=== PATIENT | female | born 1960 | race Caucasian/White ===

== ENCOUNTER 2022-10-22 23:19 | Emergency (ER) | payer BC, OTHER ==
[~2022-10-22] VITALS: Ht 162.6 cm; Wt 93.4 kg
[2022-10-22 23:33] VITALS: BP_SYST 177
--- NOTE | 2022-10-22 23:40 | NUR ---
PT PLACED IN BED 5, REPORT GIVEN TO PC NURSE, PT PLACED ON CARDIAC MONITORING.
--- NOTE | 2022-10-22 23:45 | NUR ---
PT BIB SELF FROM HOME, AMBULATED TO BED 5. PT C/O HTN BEGINNING THIS EVENING. PT STATES SHE TOOK HER BP MEDICATION EARLIER THAN USUAL, BUT STATES MEDICATION WAS INEFFECTIVE. PT C/O OF A LIGHT HEADACHE AND PAIN DULL ON LEFT NECK. PT RATES PAIN 5/10. PT STATES SHE IS UNDER ALOT OF STRESS AT WORK. PT DENIES FEVER/CHILLS, N/V/D. PT DENIES TAKING MEDICATION FOR THE PAIN. SAFETY MEASURES IN PLACE.
--- NOTE | 2022-10-22 23:45 | NUR ---
ER at bedside examining patient.
[2022-10-23] MEDS ORDERED: NIFEdipine 30 MG TAB.ER.24 PO ONE
[2022-10-23] MEDS ORDERED: KETOROLAC TROMETHAMINE 60 MG/2 ML VIAL IM ONE
[2022-10-23 00:01] LABS: BILIRUBIN,URINE NEGATIVE (NEGATIVE); BLOOD, URINE 1+ (NEGATIVE); CLARITY/URINE CLEAR (CLEAR); COLOR,URINE YELLOW (YELLOW); GLUCOSE,URINE NEGATIVE (NEGATIVE); KETONES,URINE NEGATIVE (NEGATIVE); LEUKOCYTE ESTERASE ,URINE NEGATIVE (NEGATIVE); NITRITE, URINE NEGATIVE (NEGATIVE); PROTEIN URINE NEGATIVE (NEGATIVE); UROBILINOGEN,URINE 0.2 (0.2-1.0)
[2022-10-23 00:08] LABS: BACTERIA,URINE FEW /HPF (None Seen); WBC,URINE 0-3 /HPF (0-3)
--- NOTE | 2022-10-23 00:40 | NUR ---
Patient given written and verbal discharge instructions and verbalizes understanding. ER DR LUCERO discussed with patient the results and treatment provided. Patient in stable condition. ID arm band removed. Patient educated on pain management and to follow up with PMD. Pain Scale 2/10. Opportunity for questions provided and answered. Medication side effect fact sheet provided.
[2022-10-23 00:41] VITALS: BP_SYST 149
== END 2022-10-23 00:41 | disposition home or self-care (01) ==
LOC: SED 23:19
DX: R51.9 Headache, unspecified (principal); I10 Essential (primary) hypertension; M54.2 Cervicalgia; Z88.2 Allergy status to sulfonamides; Z79.899 Other long term (current) drug therapy
CPT/HCPCS: 99283; 81000; 96372; J1885